=== PATIENT | female | born 1980 | race Caucasian/White ===

== ENCOUNTER 2018-05-09 11:59 | Day surgery (SDC) | payer BC ==
[~2018-05-09 11:59] MED LIST: ACETAMINOPHEN 1,000 MG/100 ML BTL IV ONE; CEFAZOLIN 2 Gram 2 GM/50 ML BAG IVPB ONE
[2018-05-09] MEDS ORDERED: LIDOCAINE 2% MDV (20MG/ML) 20ML VIAL IV ONE (12:00)
[2018-05-09] MEDS ORDERED: PROPOFOL 10 MG/ML VIAL IV ONE (12:00)
[2018-05-09] MEDS ORDERED: BUPIVACAINE 0.5% W/EPI MPF 30 ML VIAL IVP ONE (12:00)
[2018-05-09] MEDS ORDERED: KETOROLAC 30 MG/ML VIAL IVP ONE (12:00)
[2018-05-09] MEDS ORDERED: ONDANSETRON HCL IV 4 MG/2 ML VIAL IVP ONE (12:00)
[2018-05-09] MEDS ORDERED: FENTANYL PF 100MCG/2ML VIAL IV ONE (12:00)
[2018-05-09] MEDS ORDERED: SEVOFLURANE 250 ML INH ONE (12:00)
[2018-05-09] MEDS ORDERED: HYDROCODONE/APAP 7.5/325MG TABLET PO ONE (12:00)
[2018-05-09] MEDS ORDERED: MORPHINE SULFATE 4 MG/ML VIAL ONE (16:17)
--- NOTE | 2018-05-10 10:50 | Operative Note ---
DATE OF SURGERY: 05/09/2018 PREOPERATIVE DIAGNOSIS: Internal derangement of the left knee. POSTOPERATIVE DIAGNOSES: 1. Grade 3 chondromalacia of the patella. 2. Chondral lesion on the notch measuring about 2 x 1 cm with loose marginal cartilage. 3. Moderate synovitis left knee. OPERATION: 1. Left knee arthroscopy with chondroplasty of the patellofemoral compartment. 2. Left knee arthroscopy with complete synovectomy. Staff Surgeon: Nikolas Laboy MD Anesthesia: General. Preparation: Chloraprep. Individual Considerations: None. PROCEDURE: The patient was taken to the operating room and placed supine on the operating room table. The patient had a successful induction with general anesthetic. The left lower extremity was prepped and draped in the usual fashion. The patient had a superolateral inflow cannula placed. Skin was infiltrated with 0.5% Marcaine with epinephrine prior. A blood-tinged effusion was drained. The knee was inflated with normal saline. An inferomedial and an inferolateral portal were made in a similar fashion. The arthroscope was introduced through the inferolateral portal up into the pouch. Patellofemoral compartment and gutters showed moderate synovitis. This was debrided out with a shaver. On the patella, she had grade 3 change of the patella centrally which was smoothed off with a shaver. Her medial compartment structures are well seen and probed and found to be completely normal. In the notch, the cruciates were normal. Lateral compartment structures were completely normal including lateral meniscus, popliteal tendon, and lateral articular cartilage. At the patellofemoral compartment at the femur, there was a lesion which looked acute on the notch measuring about 2 x 1 cm with peeling cartilage on either side. The loose cartilage was debrided and the base, which was exposed bone, was debrided. After irrigation, the portals were closed with nu, and 20 mL of 0.25% plain Marcaine along with 4 mg of morphine and 40 mg of Depo-Medrol were injected into the knee. A sterile bulky compressive dressing was applied. The patient tolerated procedure well. Needle and sponge counts were correct. Estimated blood loss was minimal. She was taken back to recovery in good condition. There were no complications. IVETH
== END 2018-05-09 17:25 | disposition home or self-care (01) ==
LOC: SUR 11:59
PROVIDERS: ATTEND Orthopaedic Surgery
DX: M24.10 Other articular cartilage disorders, unspecified site (principal); M65.862 Other synovitis and tenosynovitis, left lower leg; M22.42 Chondromalacia patellae, left knee
CPT/HCPCS: 01400; 29876; 81025; G0289; J1885; J2270; J2405